=== PATIENT | female | born 1950 | race Caucasian/White ===

== ENCOUNTER 2018-11-20 07:42 | Observation (INO) | payer MEDICARE ==
[2018-11-20] VITALS (8 sets, daily range): BP systolic 96–122; BP diastolic 46–68
[~2018-11-20] VITALS: Ht 160 cm; Wt 71.2 kg
[~2018-11-20 07:42] MED LIST: ACETAMINOPHEN325 M1 PO; ASPIRIN EC81 M1 PO; ASPIRIN325 PO; B-COMPLEX-VITA1 EACH PO; BALANCED B COM1 EAC2 PO; COLACE100 MG PO; DILTIAZEM 24HR240 M1 PO; ELIQUIS2.5 MG PO; FIBERCON625 MG PO; FISH OIL 1,0001 EAC5 PO; IBUPROFEN 800800 M1 PO; LASIX 40 MG TAB40 M1 PO; LEVOTHYROXIN0.125 M1 PO; LIPITOR 20 MG T20 M1 PO; MULTIVITAMINS1 EAC7 PO; SOTALOL80 MG PO; SYNTHROID112 MC1 PO; SYNTHROID125 MCG PO; SYNTHROID175 MCG PO; TOPROL XL25 MG PO; Vitamin D PO; ZYRTEC-D TABLE1 EAC1 PO; ZYRTEC10 M2 PO
[2018-11-20 08:39] LABS: BASOPHILS 1.3 % (0.0-2.0); EOSINOPHILS 5.4 % (0.0-3.0); HEMOGLOBIN 13.4 gm/dL (12.0-15.0); MCH 30.2 pg (26.0-34.0); MCHC 34.4 g/dL (28.0-37.0); MCV 87.8 fL (80.0-100.0); MONOCYTES 6.8 % (1.0-8.0); PLATELET COUNT 177 thou/uL (150-400); POLYS 61.5 % (36.0-66.0); RBC 4.44 mil/uL (4.20-5.00); RDW 13.9 % (10.5-14.5); WBC 9.7 thou/uL (4.0-11.0)
[2018-11-20 08:52] LABS: CALCIUM 9.2 mg/dL (8.5-10.1); CREATININE 0.9 mg/dL (0.6-1.0); POTASSIUM 3.9 mmol/L (3.5-5.1)
[2018-11-20 08:53] LABS: APTT 28.8 Seconds (24.5-32.8); PROTIME 10.3 Seconds (9.3-11.4)
[2018-11-20 08:58] LABS: TOTAL BILIRUBIN 0.3 mg/dL (<0.1-1.0)
--- NOTE | 2018-11-20 17:29 | NUR ---
PT S/P AFIB ABLATION. CARE ASSUMED APPROX 1530. PT ALERT AND ORIENTED X4. DENIES PAIN AND SOA. VSS. RIGHT GROIN POST SHEATH SITE C/D/I. NEGATIVE FOR HEMATOMA. PT REMAINS TO BEDREST AT THIS TIME. BEDREST TO BE OVER AT 1745. GAIT TO BE ASSESSED AT THAT TIME. WEIR TO BE REMOVED WELL. FAMILY AT BESIDE WITH PT. BOTH DENY QUESTIONS OR CONCERNS REGARDING POC OR POST PROCEDURE PROTOCOLS. PT TOLERATING POC. NO DISTRESS NOTED.
--- NOTE | 2018-11-20 18:25 | NUR ---
PT'S WEIR CATHDER DISCONTINUED AT 1814. PT GOT UP TO WALK AND PT'S WALK WAS STABLE. PT WILL NOW BE ABLE TO WALK INDEPENDENTLY.
[2018-11-21 00:33] VITALS: BP 122/51
[2018-11-21 05:29] VITALS: BP 86/46
--- NOTE | 2018-11-21 08:13 | NUR ---
PT C/O FERREIRA AND COUGH EARLIER THIS EVENING, ORDERS RECEIVED FOR PRN MEDS, NO FURTHER C/O PAIN, VSS, PT UP AMBULATING IN ROOM, RIGHT GROIN SITE REMAINS CDI, PT HOPING TO GO HOME THIS AM, WILL CON'T TO MONITOR PER PPOC.
[2018-11-21 08:45] VITALS: BP 118/47
[2018-11-21 08:58] VITALS: BP 118/47
[2018-11-21 09:26] VITALS: BP 118/47
--- NOTE | 2018-11-21 10:05 | NUR ---
PT EDUCATED ABOUT DISCHARGE INSTRUCTIONS. PT STATED SHE DID NOT HAVE ANY QUESTIONS. PT ALERT AND ORIENTED X 4. PT'S IV WAS DC. PT'S GROIN DRESSING IS C/D/I. PT STATED SHE HAD ZERO PAIN. PT DISCHARGED WITH SISTER VIA WHEELCHAIR AND ESCORTED OUT WITH HOSPITAL STAFF.
--- NOTE | 2018-11-22 12:11 | P ---
[facility] [place] [address] PROCEDURE REPORT Name: AWAIS KINSEY Room #: 217-P [facility] Josh MLuis Daniel.#: [id number] Admission: 11/20/18 ������������������ Attend Phys: Chance Green MD Discharge: 11/21/18 ������������������ Date of : 48 Report #: [id number] THIS REPORT FOR: //name// CC: Ramon Pimentel PREOPERATIVE DIAGNOSIS: Paroxysmal atrial fibrillation. POSTOPERATIVE DIAGNOSIS: Paroxysmal atrial fibrillation. PROCEDURES PERFORMED: 1. Atrial fibrillation ablation, CPT code 54836. 2. Program stimulation and pacing after IV infusion, CPT code 77800. 3. 3D mapping EP, CPT code 04987. 4. Intracardiac echo, CPT code 91243. HISTORY: The patient is a 68-year-old with a history of atrial fibrillation, who has had recurrence despite sotalol therapy. She is here for AFib ablation. ANESTHESIA: The patient underwent general anesthesia, with no anesthesia-related complications. DESCRIPTION OF PROCEDURE: The patient underwent informed consent. We discussed the details of the procedure, including the risks, which include, but not limited to bleeding, infection, vascular damage, cardiac perforation and pneumothorax. She understood these risks and is willing to proceed. The patient was brought to the EP laboratory in a fasting and sedated state, prepped and draped in the sterile fashion. I injected lidocaine to the right groin region, obtained access to the right femoral vein x 3, placing an 8, 9 and 7-Tongan short sheath using the modified Seldinger technique. Next, under fluoroscopy, I placed a decapolar catheter easily in the coronary sinus and ice catheter was placed in the right atrium. Under intracardiac ultrasound, a 3D geometry was created and there was evidence of 2 left and 2 right pulmonary veins. Next, the patient was systemically heparinized and a transseptal was performed using a Garvin needle and SL1 sheath. Of note, the interatrial septum was somewhat thickened and appeared to be somewhat calcified. I was able to advance my wire into the left superior pulmonary vein, but could not advance my SL1 sheath. Therefore, I performed an interatrial septum septoplasty using my standard balloon. After this, I was able to advance the SL1 sheath easily into the left atrium and then exchanged for the cryo sheath. At baseline, the patient was in sinus rhythm, with sinus cycle length of 975 milliseconds, GA interval 130 milliseconds, QRS duration 80 milliseconds and QT interval 470 milliseconds. Next, I started by isolating the left superior pulmonary vein. I performed a single 4-minute freeze as this vein isolated within [address] [address] PROCEDURE REPORT Name: AWAIS KINSEY EMIL Room #: 217-P [facility] M.R.#: [id number] Admission: 11/20/18 ������������������ Attend Phys: Chance Green MD Discharge: 11/21/18 ������������������ Date of : 48 Report #: [id number] I then turned my attention to the left inferior pulmonary vein. This vein isolated during the first freeze within 45 seconds. The first freeze was 3 minutes duration. The attempts were not very good and only reached -20 degrees. The vein reconnected as soon as the balloon came down. A second freeze was performed at a more superior location. The vein isolated at this time within 39 seconds and I performed a single 3-minute freeze. Attempts were much better on this second freeze. I turned my attention to the right superior pulmonary vein. I performed initial freeze that was 180 seconds. The vein isolated within 100 seconds, but reconnected again. I then performed a second freeze with a slightly lower position with my balloon. During this freeze, the vein isolated within 57 seconds. This freeze was of 3 minutes duration. I then turned my attention to the right inferior pulmonary vein. I performed initially a 90-second freeze, where the vein isolated within 30 seconds and then performed a second freeze of 180 seconds duration. A cryoballoon was then removed from the left atrium and I performed a second 3D voltage map. The first voltage map was performed prior to the ablation and showed activation of all veins. The second voltage 3D map showed that we now had a wide circumferential ablation of the left and right veins. EP STUDY: Next, a basic EP study was performed. AV block was noted at 300 milliseconds. Atrial ERP was noted at 240 milliseconds at a [address] cycle length[address] ISOPROTERENOL INFUSION: An isoproterenol infusion was performed at 2 mcg per minute. An EP study was performed. AV block was noted at 280 milliseconds. Atrial ERP was noted at 240 milliseconds at a [address] cycle length. There was no SVT or atrial fibrillation induced. There was one short run of atrial tachycardia that lasted about 4 beats. As such, the procedure was concluded. The patient received systemic protamine and once the ACT was within acceptable range, all catheters and sheaths were pulled and hemostasis was obtained. The patient awoke neurologically and hemodynamically intact. No complications and no significant bleeding. CONCLUSIONS: 1. Successful atrial fibrillation ablation with isolation of the pulmonary veins. 2. Normal EP study with no inducible arrhythmias on or off isoproterenol. ��������������������������������������������� <ELECTRONICALLY SIGNED> ���������������������������������������� By: Chance Green MD ��������������������������������������������� 11/22/18 1211 1143 [id number] Chance Green MD /nt
== END 2018-11-21 10:06 | disposition home or self-care (01) ==
LOC: CATH 07:42 → 2N 15:25 → ENTRNSPT 11-21 09:44 → EDTRNSPTSTS 11-21 09:53 → 2N 11-21 10:06
PROVIDERS: ADMIT Internal Medicine Cardiovascular Disease
DX: I48.0 Paroxysmal atrial fibrillation (principal); E03.9 Hypothyroidism, unspecified; Z79.01 Long term (current) use of anticoagulants; Z79.899 Other long term (current) drug therapy
CPT/HCPCS: 10081; 62110; 62900; 70005